=== PATIENT | male | born 1950 | race Caucasian/White ===

== ENCOUNTER → 2019-09-30 | Outpatient (CLI) | payer MEDICARE ==
[~2019-09-30] MED LIST: ALLO300T PO; ASPI-630 PO; DOCU-153 PO; EZET10TA20 PO; FEXO180T81 PO; HYDR-2761 PO; HYDROCODONE-IB1 EACH PO; IBUP-1007 PO; IBUP200T77 PO; IPRA4AER IH; LOSA100T14 PO; LOSA1TAB22 PO; METH750T2 PO; OXYC1TAB15 PO; TAMS0.4C97 PO; TEST200V4 IM; TRIA10.8 NS
[2019-09-30 13:22] LABS: BASO # 0.1 x10^3/uL (0.0-0.2); BASO % 1 % (0-3); EOS # 0.4 x10^3/uL (0.0-0.7); EOS % 5 % (0-3); HEMATOCRIT 52.1 % (39.0-53.0); HEMOGLOBIN 17.7 g/dL (13.0-17.5); LYMPH % 23 % (24-48); MEAN CORPUSCULAR HEMOGLOBIN 33 pg (25-35); MEAN CORPUSCULAR HGB CONC 34 g/dL (31-37); MEAN CORPUSCULAR VOLUME 98 fL (79-100); MONO # 1.2 x10^3/uL (0.0-1.1); MONO % 14 % (0-9); NEUT # 4.8 x10^3/uL (1.8-7.7); NEUT % 57 % (31-73); PLATELET COUNT 235 x10^3/uL (140-400); RED CELL DISTRIBUTION WIDTH 14.5 % (11.5-14.5); WHITE BLOOD COUNT 8.5 x10^3/uL (4.0-11.0)
--- NOTE | 2019-09-30 13:25 | EKG ---
[facility] [address] [place] [address] Test Date: 2019-09-30 Test Time: 13:22:28 Pat Name: LACI JACKSON Department: Room: Gender: M Scaler: : 1950 Requested By: REMIGIO ELLIS Order Number: [id number] Reading MD: Jose Paredes MD Measurements Intervals [place] Rate: 75 P: 25 TN: 168 QRS: 36 QRSD: 92 T: 25 QT: 358 QTc: 402 Interpretive Statements SINUS RHYTHM Electronically Signed On 10-01-2019 12:48:56 CDT by Jose Paredes MD
[2019-09-30 13:35] LABS: PROTHROMBIN TIME PATIENT 13.1 SEC (11.7-14.0)
[2019-09-30 13:38] LABS: ALBUMIN 3.4 g/dL (3.4-5.0); CALCIUM 8.6 mg/dL (8.5-10.1); CREATININE 1.1 mg/dL (0.7-1.3); GFR 66.8; POTASSIUM 4.6 mmol/L (3.5-5.1); TOTAL BILIRUBIN 0.6 mg/dL (0.2-1.0); TOTAL PROTEIN 6.7 g/dL (6.4-8.2)
--- NOTE | 2019-10-01 11:12 | HP ---
ADMIT DATE: PREOPERATIVE HISTORY AND PHYSICAL Pete Mcghee dictating for Dr. Andre Ellis. DATE OF SURGERY: 10/04/2019 HISTORY OF PRESENT ILLNESS: The patient has problems with low back pain. He says that if he walks, his legs feel weak. There is much more significant problem on the right side. The pain is mainly in the right buttock and radiates into the right hip. It can radiate into the right inguinal region. This started after cutting firewood in 03/2019. Standing and walking increases his pain. He says the pain can reach a 10/10. Sitting helps him. He is taking [place] 3 per day. He has been seen in the pain clinic. He has had steroid injections. He had them last in 2017. He also has joint injections in 04/2019. He said those did help him. In 05/2019, he underwent a lumbar epidural steroid injection without benefit. He has had no physical therapy. He is scheduled to be seen for another injection later this month. PAST MEDICAL HISTORY: Arthritis, headaches, hypertension, gout, cancer, COPD, kidney stones, shingles. PAST SURGICAL HISTORY: Cholecystectomy, lumbar microdecompression at L3-L4, L4-L5 in 2005, lumbar fusion L3-L4 and L4-L5 in 2010 and ACDF at C3-C4 in 2012, prostate surgery, bladder tumor removal. FAMILY HISTORY: Heart disease, hypertension, migraine headaches and diabetes. SOCIAL HISTORY: He is retired. . He quit smoking this year. He previously smoked 2 packs per day for 45 years. He drinks alcohol 1-2 times per year. ALLERGIES: KEFLEX. CURRENT MEDICATIONS: [place], losartan, ezetimibe, tamsulosin, Augmentin, Combivent, Milagros, aspirin, ibuprofen, probiotics, losartan, potassium-hydrochlorothiazide, allopurinol, Medrol Dosepak. REVIEW OF SYSTEMS: A 12-point review of systems was obtained and is noncontributory except for that mentioned above. PHYSICAL EXAMINATION: NEUROSURGERY EXAMINATION: GENERAL APPEARANCE: Alert, pleasant, no acute distress. HEAD: Normocephalic and atraumatic. SKIN: Warm and dry. Well-healed lumbar incision. MUSCULOSKELETAL: Lumbar paraspinal muscle bulk is normal. Restricted range of motion of the lumbar spine. Xvop-bw-qgdeukmi tenderness of the lower lumbar spine with palpation, normal range of motion of the lower extremities bilaterally. EXTREMITIES: No clubbing, cyanosis or edema. NEUROLOGIC: Alert and oriented x 3, normal recent and remote memory, strength 5/5 in bilateral lower extremities, sensory was intact to light touch in bilateral lower extremities. Reflexes are present and symmetric in lower extremities bilaterally, negative straight leg raising bilaterally, normal gait. IMAGING: I reviewed a lumbar MRI scan. There are a number of abnormalities. He has a fusion extending from L3 through L5. At L5-S1 on the left, there is disk bulging and a large hypertrophic facet disease, which markedly narrows the left side of the canal and left lateral recess. At L2-L3, there is bilateral facet hypertrophy, which is combined with disk bulging, which is most prominent on the right side. This is associated with generalized stenosis at that level, but with relatively severe right lateral recess and neural foraminal narrowing. There is a moderate left-sided lateral recess and foraminal narrowing. ASSESSMENT: 1. Spinal stenosis, lumbar region with neurogenic claudication. 2. Radiculopathy, lumbar region. 3. Arthrodesis status. 4. Low back pain. PLAN: I believe his symptoms and the pattern of his pain are related to problems at L2-L3. If he comes to surgery, I would recommend at least a partial removal of hardware on the right side to gain access and perform a generous right direct laminectomy and microdiskectomy. He understands. He would like to proceed. We will make the arrangements. ANDRE ELLIS MD DR: IVAN/shelby JOB#: [id number] / [id number]
== END ==
LOC: SURGPAT 12:17
PROVIDERS: ATTEND Neurological Surgery
DX: Z01.818 Encounter for other preprocedural examination (principal); Z11.59 Encounter for screening for other viral diseases; M48.062 Spinal stenosis, lumbar region with neurogenic claudication; M54.16 Radiculopathy, lumbar region
CPT/HCPCS: 36415; 80053; 85025; 85610; 85730; 87641; 93005; U0003

== ENCOUNTER 2019-10-04 06:21 | Inpatient (IN) | payer MEDICARE ==
--- NOTE | 2019-10-01 17:11 | PREOP HP ---
DATE OF SERVICE: 10/04/2019 PREOPERATIVE HISTORY AND PHYSICAL DATE OF SURGERY: 10/04/2019. HISTORY OF PRESENT ILLNESS: The patient has problems with low back pain. He says that if he walks, his legs feel weak. There is more significant problem on the right side than the left. The pain is mainly in the right buttock and radiates into the right hip. It can radiate into the right inguinal region. This started after cutting firewood in 03/2019. Standing and walking increases his pain. He says the pain can reach a 10/10. Sitting helps him. He is taking [place] 3 per day. He has been seen in the pain clinic. He has had steroid injections. He had them last in 2017. He also has joint injections in 04/2019. He said those did help him. In 05/2019, he underwent a lumbar epidural steroid injection without benefit. He has had no physical therapy. He is scheduled to be seen for another injection later this month. PAST MEDICAL HISTORY: Arthritis, headaches, hypertension, gout, cancer, COPD, kidney stones, shingles. PAST SURGICAL HISTORY: Cholecystectomy, lumbar microdecompression at L3-L4, L4-L5 in 2005, lumbar fusion L3-L4 and L4-L5 in 2010 and ACDF at C3-C4 in 2012, prostate surgery, bladder tumor removal. FAMILY HISTORY: Heart disease, hypertension, migraine headaches and diabetes. SOCIAL HISTORY: He is retired. . He quit smoking this year. He previously smoked 2 packs per day for 45 years. He drinks alcohol 1-2 times per year. ALLERGIES: KEFLEX. CURRENT MEDICATIONS: [place], losartan, ezetimibe, tamsulosin, Augmentin, Combivent, Milagros, aspirin, ibuprofen, probiotics, losartan, potassium-hydrochlorothiazide, allopurinol, Medrol Dosepak. REVIEW OF SYSTEMS: A 12-point review of systems was obtained and is noncontributory except for that mentioned above. PHYSICAL EXAMINATION: NEUROSURGERY EXAMINATION: GENERAL APPEARANCE: Alert, pleasant, no acute distress. HEAD: Normocephalic and atraumatic. SKIN: Warm and dry. Well-healed lumbar incision. MUSCULOSKELETAL: Lumbar paraspinal muscle bulk is normal. Restricted range of motion of the lumbar spine. Kmlm-fy-metyakgg tenderness of the lower lumbar spine with palpation, normal range of motion of the lower extremities bilaterally. EXTREMITIES: No clubbing, cyanosis or edema. NEUROLOGIC: Alert and oriented x 3, normal recent and remote memory, strength 5/5 in bilateral lower extremities, sensory was intact to light touch in bilateral lower extremities. Reflexes are present and symmetric in lower extremities bilaterally, negative straight leg raising bilaterally, slow gait. IMAGING: I reviewed a lumbar MRI scan. There are a number of abnormalities. He has a fusion extending from L3 through L5. At L5-S1 on the left, there is disc bulging and a large hypertrophic facet disease, which markedly narrows the left side of the canal and left lateral recess. At L2-L3, there is bilateral facet hypertrophy, which is combined with disc bulging, which is most prominent on the right side. This is associated with generalized stenosis at that level, but with relatively severe right lateral recess and neural foraminal narrowing. There is a moderate left-sided lateral recess and foraminal narrowing. ASSESSMENT/ PLAN: I believe his symptoms and the pattern of his pain are related to problems at L2-L3. If he comes to surgery, I would recommend at least a partial removal of hardware on the right side to gain access and perform a generous right direct laminectomy and microdiscectomy. He understands. He would like to proceed. We will make the arrangements. REIMGIO ELLIS MD DR: IVAN/shelby JOB#: [id number] / [id number] FRANTZ
[2019-10-04] VITALS (9 sets, daily range): BP systolic 138–167; BP diastolic 81–98
[~2019-10-04] VITALS: Ht 177.8 cm; Wt 91.6 kg
[~2019-10-04 06:21] MED LIST changes: +BACITRACIN 50,000 UNIT in IV NORMAL SALINE 1000ML BAG 1,000 ML IRR ONE; -DOCU-153 PO; -METH750T2 PO; -OXYC1TAB15 PO; +VANCOMYCIN 1GM IVPB FOR OMNI 250 ML IV PRN
[2019-10-04] MEDS ORDERED: ONDANSETRON PF 4 MG/2 ML VIAL. ONE (06:34)
[2019-10-04] MEDS ORDERED: PHENYLEPHRINE in 0.9% NACL PF 1 MG/10 ML SYRINGE. IV ONE (06:34)
[2019-10-04] MEDS ORDERED: PROPOFOL 50 ML IV ONE ×3 (06:34→13:12)
[2019-10-04] MEDS ORDERED: LIDOCAINE 2% PF 5 ML VIAL. ONE (06:34)
[2019-10-04] MEDS ORDERED: DEXAMETHASONE SOD PHOS 20 MG/5 ML VIAL. ONE (06:34)
[2019-10-04] MEDS ORDERED: PROPOFOL 10 MG/ML (20ML) VIAL. IV ONE (06:34)
[2019-10-04] MEDS ORDERED: ROCURONIUM 50 MG/5 ML VIAL. ONE (06:35)
[2019-10-04] MEDS ORDERED: REMIFENTANIL 2 MG VIAL. IV ONE ×2 (06:36→11:45)
[2019-10-04] MEDS ORDERED: BUPIVACAINE-EPI 0.5%-1:200000 MPF 30 ML VIAL. ONE (06:58)
[2019-10-04] MEDS ORDERED: KETOROLAC 60 MG/2 ML VIAL. ONE (06:58)
[2019-10-04] MEDS ORDERED: GELATIN SPONGE SIZE 100. ONE (06:58)
[2019-10-04] MEDS ORDERED: THROMBIN TOPICAL 20,000 UNIT SPRAY.SYRN KIT TP ONE (06:58)
[2019-10-04] MEDS ORDERED: IV RINGERS,LACTATED 1000ML 1,000 ML IV SCH (07:00)
[2019-10-04] MEDS ORDERED: MORPHINE SULFATE 2 MG/ML VIAL. IV PRN (07:00)
[2019-10-04] MEDS ORDERED: ONDANSETRON PF 4 MG/2 ML VIAL. IV PRN (07:00)
[2019-10-04] MEDS ORDERED: LIDOCAINE 1% PF 2 ML VIAL. ID PRN (07:00)
[2019-10-04] MEDS ORDERED: HYDROmorphone 2 MG/ML VIAL IV PRN (07:00)
[2019-10-04] MEDS ORDERED: PROCHLORPERAZINE 10 MG/2 ML VIAL. IV PRN (07:00)
[2019-10-04] MEDS ORDERED: fentaNYL PF VIAL 100 MCG/2 ML VIAL IV PRN ×2 (07:00)
[2019-10-04] MEDS ORDERED: IPRATRPIUM/ALBUTEROL 0.5/2.5MG 3 ML NEBU. NEB ONE (08:00)
[2019-10-04] MEDS ORDERED: MIDAZOLAM HCL/PF 2 MG/2 ML VIAL. ONE (08:22)
[2019-10-04] MEDS ORDERED: fentaNYL PF VIAL 100 MCG/2 ML VIAL ONE (08:22)
[2019-10-04] MEDS ORDERED: SUCCINYLCHOLINE 200 MG/10 ML VIAL. ONE (08:56)
--- NOTE | 2019-10-04 09:28 | RAD ---
CT lumbar spine without contrast HISTORY: Lumbar radiculopathy. FINDINGS: S-shaped lumbar scoliosis. Lumbar vertebral body height and alignment intact. There is transitional lumbosacral anatomy, the transitional vertebral segment is classified as a sacralized L5 vertebra, with hypoplastic T12 thoracic vertebral ribs demonstrated on axial image 57. Based on this numbering of the vertebra there are postoperative changes of posterior fusion with pedicle screws and rods at L2-L4, laminotomies with posterior lateral osseous fusion L2-L4, and discectomy with interbody fusion with spacers at L2-L3 and L3-L4. No bone lysis surrounding the hardware to suggest loosening. No fracture. No spondylolysis defect. Aortoiliac artery calcified plaque. Paraspinal tissues are unremarkable. Lumbar spondylosis is described below. T10-T11: Disc height loss, large disc bulge and facet spurring with severe spinal canal and right lateral recess stenosis and moderate neural foraminal stenoses. T11-T12: Disc bulge, disc height loss, facet spurring, mild left neural foraminal stenosis, there may be mild spinal canal stenosis. T12-L1: Disc height loss, disc bulge, endplate spurring, facet spurring, moderate to severe spinal canal, lateral recess and neural foraminal stenoses. L1-L2: Vacuum disc, posterior disc height loss, disc bulge, right lateral endplate spurring, facet spurring and hypertrophy, with severe spinal canal stenosis and right neural foraminal stenosis. There is moderate left neural foraminal stenosis. L2-L3: Streak artifact limits soft tissue detail. Discectomy and fusion. Bony spinal canal is grossly decompressed. Lateral vertebral endplate spurring and facet spurring contributes to at least moderate neural foraminal stenoses. L3-L4: Streak artifact limits soft tissue detail. Discectomy and fusion. Bony spinal canal is grossly decompressed. Lateral vertebral endplate spurring and facet hypertrophy and spurring with moderate left and mild right neural foraminal stenoses. L4-L5: Disc height loss, vacuum disc, disc bulge, left greater than right lateral vertebral endplate spurring, facet hypertrophy and spurring, with moderate spinal canal stenosis, moderate neural foraminal stenosis and severe left neural foraminal stenosis. L5-S1: Spinal canal and neural foramina are patent. IMPRESSION: Transitional lumbosacral anatomy with partial sacralization of the L5 lumbar vertebral body. Postsurgical changes. Lumbar scoliosis, disc disease and arthritis with spinal canal and neural foraminal stenoses at several levels. See discussion above. Exposure: One or more of the following individualized dose reduction techniques were utilized for this examination: 1. Automated exposure control 2. Adjustment of the mA and/or kV according to patient size 3. Use of iterative reconstruction technique Electronically signed by: Kristopher Jordan MD (10/04/2019 9:25 AM) [id number]
[2019-10-04] MEDS ORDERED: DESFLURANE > 120 MINUTES IH ONE (14:34)
--- NOTE | 2019-10-04 15:25 | NUR ---
Arrived to unit by bed from PACU. Awake and oriented x's 4. No c/o at this time. Dressings on lower back are d/i x's 2. Place new ice pack at incision site. Moves all extremities easily without difficulty. IVF's intact and fusing. JOHN's and CAREY's on bilaterally. Side rails up x's 2 with call light in reach. Daughter at bedside. Cont. Monitor.
[2019-10-04] MEDS ORDERED: fentaNYL PF VIAL 100 MCG/2 ML VIAL IVP PRN (15:30)
[2019-10-04] MEDS ORDERED: ACETAMINOPHEN 325 MG TABLET. PO PRN (15:30)
[2019-10-04] MEDS ORDERED: CALCIUM CARBONATE 500 MG TAB.CHEW PO PRN (15:30)
[2019-10-04] MEDS ORDERED: MAGNESIUM HYDROXIDE 2,400 MG/30 ML ORAL.SUSP. PO PRN (15:30)
[2019-10-04] MEDS ORDERED: NALOXONE 0.4 MG/ML VIAL. IV PRN (15:30)
[2019-10-04] MEDS ORDERED: MAG HYDROX/ALUMINUM HYD/SIMETH 30 ML ORAL.SUSP PO PRN (15:30)
[2019-10-04] MEDS ORDERED: 0.9 % SODIUM CHLORIDE 10 ML DISP.SYRIN. IV PRN (15:30)
[2019-10-04] MEDS ORDERED: diphenhydrAMINE HCL 25 MG CAPSULE PO PRN (15:30)
[2019-10-04] MEDS ORDERED: oxyCODONE/APAP 5/325 1 TAB TABLET PO PRN (15:30)
--- NOTE | 2019-10-04 15:38 | RAD ---
FLUOROSCOPY < 1 HR History: Reason: LUMBAR LAMINECTOMY IN OR WITH HARDWARE REMOVAL WITH C-ARM. / Spl. Instructions: / History: Comparison: CT October 04, 2019 Technique/findings: Fluoroscopy provided intraoperatively during reported hardware removal and lumbar laminectomy. See procedure note for further details. Number of fluoroscopic images: 2 Impression: 1. Fluoroscopy provided intraoperatively during spinal surgery. Electronically signed by: Nathanael Gutierrez DO (10/04/2019 3:35 PM) [id number]
[2019-10-04] MEDS: NICOTINE 14MG PATCH. TD SCH (16:07)
[2019-10-04] MEDS: METHOCARBAMOL 750 MG TABLET PO PRN (16:11)
[2019-10-04] MEDS ORDERED: NON FORMULARY ITEM (Ipratropium/Albuterol Sulfate (Combivent Respimat Inhal) 2 INH) IH SCH (17:00)
--- NOTE | 2019-10-04 17:15 | NUR ---
Ambulated the hallway with walker and tolerated it well. Return to room and sitting on edge of bed visiting with daughter. Cont. monitor.
--- NOTE | 2019-10-04 19:53 | OP ---
DATE OF SURGERY: 10/04/2019 PREOPERATIVE DIAGNOSES: 1. Instrumented fusion L3 through L5. 2. Adjacent segment degenerative change with stenosis at L2-L3 along with lumbar radiculopathy. POSTOPERATIVE DIAGNOSES: 1. Instrumented fusion L3 through L5. 2. Adjacent segment degenerative change with stenosis at L2-L3 along with lumbar radiculopathy. OPERATION PERFORMED: Removal of hardware L3, bilateral hemilaminotomy with decompression of dura and nerve root L2-L3, placement of hardware L2, replacement of hardware L3, posterolateral fusion L2-L3 with allograft and autograft bone. SURGEON: Andre Ellis M.D. ACTIVITIES VOLUNTEER: MICHAEL Rodrigues assisted with the decompression as well as the fusion. OPERATIVE INDICATIONS: The patient is a pleasant 69-year-old man who developed intractable back and severe right leg pain. He was found to have stenosis at L2-L3 along with severe degenerative changes. I recommended bilateral hemilaminotomies with decompression of dura and nerve root, combined with an instrumented fusion extending his previous fusion up to L2-L3. I spoke with him about the surgery, the risks, technique and expected postoperative course and he understood and wished to go ahead. The morning of surgery, however, he describes significant left-sided pain so surgery to decompress the left side as well was recommended. DESCRIPTION OF PROCEDURE: Following general endotracheal anesthesia, the patient was positioned prone on the Rodrigo table. Lumbar region prepped and draped in standard fashion. JOHN hose and AV impulse boots were applied for DVT prophylaxis. A microscope was draped. Fluoroscopy was draped and brought in the field. Monitoring was established. Vanco1 gram was given less than 1 hour prior to initiation of the surgery. Using fluoroscopic guidance, a previous midline incision at about the L3-L4 region was extended superiorly to encompass L2-L3. I attached the BrainLAB Star to the spinous process of L3 and then VividWorks system was initialized. I reflected the paraspinal muscles at L2-L3, exposed the hardware of L3 bilaterally, cut the rods between L3 and L4 screws and then removed the screws at L3 bilaterally. I then went up to L2 and using BrainLAB guidance and anatomic landmarks first drilled and then passed a black ball followed by tap the pedicles of L2. I did use stimulated EMG monitoring which was used prior to passing anything into the pedicle to ensure that the roots were completely safe. There were no difficulties with this. At this point, then I brought in the microscope, burred down a generous hemilaminotomy, first on the right and then on the left. There was severe compression on the right exiting root and I fully relieved this just below there was bulging disc.It was very firm and partly calcified and no discectomy was warranted. Following this, then I excoriated posterolaterally. I aspirated 20 mL of bone marrow from the right iliac crest, which I obtained through a separate small stab incision. This was connected with the allograft bone. I did save autograft bone for my decompression of work and the mixture of allograft and autograft was then packed into each lateral gutter. Screws were placed, rods were placed. The system was torqued sequentially. X-rays looked excellent. I then closed the wound with absorbable suture in multiple layers. The skin was closed with 4-0 subcuticular stitch. ANDRE ELLIS MD DR: IVAN/shelby JOB#: [id number] / [id number]
[2019-10-04] MEDS: IPRATRPIUM/ALBUTEROL 0.5/2.5MG 3 ML NEBU. NEB SCH (20:22)
[2019-10-04] MEDS: FEXOFENADINE PO PRN (20:46)
[2019-10-04] MEDS: PSEUDOEPHEDRINE PO PRN (20:46)
[2019-10-04] MEDS: oxyCODONE/APAP 5/325 1 TAB TABLET PO PRN (20:47)
[2019-10-04] MEDS: POTASSIUM CL 20MEQ D5-0.45NACL 1,000 ML IV SCH (20:50)
[2019-10-04] MEDS: DOCUSATE SODIUM 100 MG CAPSULE. PO SCH (20:54)
[2019-10-04] MEDS ORDERED: VANCOMYCIN 1 GM in IV NORMAL SALINE 250ML 250 ML IV ONE (21:00)
--- NOTE | 2019-10-04 23:00 | NUR ---
Denies urge to void. Bladder scan shows 942cc. Straight cath returned 500cc. + hypospadias. c/o "burning" to lateral right scrotum. Nothing unusual seen.
[2019-10-05] MEDS: oxyCODONE/APAP 5/325 1 TAB TABLET PO PRN ×2 (02:57→08:06)
[2019-10-05 03:12] VITALS: BP 139/78
[2019-10-05] MEDS: POTASSIUM CL 20MEQ D5-0.45NACL 1,000 ML IV SCH ×2 (04:37→17:23)
[2019-10-05 06:27] VITALS: BP 117/67
--- NOTE | 2019-10-05 06:28 | NUR ---
"I might go home today." Denies urge to void. Refused offered pain meds.
[2019-10-05] MEDS: IPRATRPIUM/ALBUTEROL 0.5/2.5MG 3 ML NEBU. NEB SCH ×4 (07:17→19:50)
[2019-10-05] MEDS: TAMSULOSIN 0.4 MG CAP.ER.24H. PO SCH (08:06)
[2019-10-05] MEDS: EZETIMIBE 10 MG TABLET. PO SCH (08:06)
[2019-10-05] MEDS: METHOCARBAMOL 750 MG TABLET PO PRN (08:06)
[2019-10-05] MEDS: ASPIRIN CHEWABLE 81 MG TABLET. PO SCH (08:07)
[2019-10-05] MEDS: NICOTINE 14MG PATCH. TD SCH (08:07)
[2019-10-05] MEDS: DOCUSATE SODIUM 100 MG CAPSULE. PO SCH ×2 (08:07→21:24)
[2019-10-05] MEDS: LOSARTAN POTASSIUM 50 MG TABLET. PO SCH (08:10)
[2019-10-05] MEDS: FLUTICASONE 50MCG/NASAL SPRAY 16GM BOTTLE. NS SCH (08:12)
[2019-10-05] MEDS ORDERED: CETIRIZINE HCL 10 MG TABLET. PO SCH (09:00)
[2019-10-05] MEDS ORDERED: DOCU-153 PO (12:24)
[2019-10-05] MEDS ORDERED: OXYC1TAB15 PO (12:24)
[2019-10-05] MEDS ORDERED: METH750T2 PO (12:24)
--- NOTE | 2019-10-05 12:26 | DISCH ---
DISCHARGE INSTRUCTIONS Condition on Discharge Condition on Discharge: Stable Activity After Discharge Activity Instructions for Disc: Activity as tolerated, Avoid exertion Other activity instructions: No driving for a week Bathing Instructions: Shower-keep dressing dry Lifting Instructions after Dis: No heavy lifting, No pulling or pushing, Do not lift >10 pounds Diet after Discharge Additional Diet Restrictions: resume home diet Wound Incision Care Wound/Incision Care: Ice to area for comfort Other wound/incision instructi: may remove dressing in 48 hours if dry then may shower, no soaking Contacting the DRRebekah after DC Call your doctor for: Concerns you may have Follow-Up Follow up with: Dr. Bush's nurse in 2 weeks [phone] Treatment/Equipment after DC Adaptive Equipment Issued: REMIGIO Lord MD Oct 05, 2019 12:26
--- NOTE | 2019-10-05 12:49 | NUR ---
Voided without measuring it. States "I void small amounts at a time but frequently". Nothing new for him. Bladder scan and had 781ml. Pt spoke with Gladys LAWSON and nurse earlier about having to self cath after having prostate surgery. States still has supplies if needed to self cath. Will bladder scan again after voiding. Cont. to encourage to increase po intake and monitor output.
[2019-10-05 15:00] VITALS: BP 122/61
--- NOTE | 2019-10-05 15:20 | NUR ---
Voided 100ml dark falguni urine. Bladder scan 890ml. Straight cath and got 700ml of dark falguni urine. Notified Gladys LAWSON and gave orders cancel discharge, strict I&O and bladder scan every 6 hours.
[2019-10-05] MEDS: POTASSIUM CL 20MEQ-0.45% NACL 1,000 ML IV SCH (17:27)
[2019-10-05 18:40] VITALS: BP 113/69
[2019-10-05] MEDS: FEXOFENADINE PO PRN (21:25)
[2019-10-05] MEDS: PSEUDOEPHEDRINE PO PRN (21:25)
--- NOTE | 2019-10-05 22:00 | NUR ---
Didn't call for assist to toilet. stated he "peed a little bit in the toilet". No measurement. Bladder scan shows 883cc, straight cath returned 500cc. "I have a urologist in [place], [place]." Denied urge to void and pain w/ distended bladder.
--- NOTE | 2019-10-05 23:00 | NUR ---
Requested to sit in recliner and "put some oxygen on." RA sat 92%. States he wears 3l prn at home. Sat on 3l= 96%. Surgical dressing changed due to drainage.
--- NOTE | 2019-10-06 01:22 | NUR ---
Requested Tolbert, "I can't pee and it's uncomfortable." Bladder scan shows 612cc, 16 FR Tolbert placed w/ mild difficulty this time. 750cc immediate return. Denies back pain. Has been restless, Denies back pain or need for meds. Surgical dressing has shadow drainage present. Assisted into recliner, call light in reach. "I don't know what I need."
[2019-10-06 06:03] VITALS: BP 138/83
--- NOTE | 2019-10-06 06:09 | NUR ---
Assisted from chair to bed. Surgical cleansed w/ Chlorhexadrine swab and dressed w/ telfa, gauze and bordered gauze. Continues to deny need for meds. IV changed to saline lock. Encouraged po intake. 1 liter emptied from Tolbert.
[2019-10-06] MEDS: POTASSIUM CL 20MEQ-0.45% NACL 1,000 ML IV SCH (06:20)
[2019-10-06] MEDS: IPRATRPIUM/ALBUTEROL 0.5/2.5MG 3 ML NEBU. NEB SCH ×2 (07:50→11:27)
[2019-10-06] MEDS: ASPIRIN CHEWABLE 81 MG TABLET. PO SCH (08:30)
[2019-10-06] MEDS: EZETIMIBE 10 MG TABLET. PO SCH (08:30)
[2019-10-06] MEDS: LOSARTAN POTASSIUM 50 MG TABLET. PO SCH (08:31)
[2019-10-06] MEDS: DOCUSATE SODIUM 100 MG CAPSULE. PO SCH (08:31)
[2019-10-06] MEDS: TAMSULOSIN 0.4 MG CAP.ER.24H. PO SCH (08:31)
[2019-10-06] MEDS: NICOTINE 14MG PATCH. TD SCH (08:34)
[2019-10-06] MEDS: FLUTICASONE 50MCG/NASAL SPRAY 16GM BOTTLE. NS SCH (08:35)
--- NOTE | 2019-10-06 10:43 | PDOC ---
PROGRESS NOTES Subjective Subjective LATE ENTRY- Patient seen at 1215 10/05/19 POD #1 S/P Removal of hardware L3, bilateral hemilaminotomy with decompression of dura and nerve root L2-L3, placement of hardware L2, replacement of hardware L3, posterolateral fusion L2-L3 sitting up on side of bed back pain well controlled ambulated in [place] with walker Difficulty voiding and required straight cath strength 5/5 in BLE Dressing D, I, Flat possible dc later today if able to void PT D/W RN Objective Objective Vital Signs Date Time Temp Pulse Resp B/P (MAP) Pulse Ox O2 Delivery O2 Flow Rate FiO2 10/06/19 08:31 90 138/83 10/06/19 08:15 Room Air 10/06/19 07:52 94 10/06/19 06:03 97.9 22 97.9 10/04/19 14:41 8 Intake and Output 10/06/19 07:00 Intake Total 2561 ml Output Total 2200 ml Balance 361 ml Intake Oral 1520 ml Blood Product IV Normal Saline Flush 1041 ml Output Urine Total 2200 ml Stool Total 0 ml # Voids 3 Comment Review of Relevant I have reviewed the following items amira (where applicable) has been applied. Medications Current Medications Ondansetron HCl (Zofran) 4 mg PRN Q6HRS PRN IV NAUSEA/VOMITING; Start 10/04/19 at 07:00; Stop 10/04/19 at 15:51; Status DC Fentanyl Citrate (Fentanyl 2ml Vial) 25 mcg PRN Q5MIN PRN IV MILD PAIN 1-3; St art 10/04/19 at 07:00; Stop 10/04/19 at 15:51; Status DC Fentanyl Citrate (Fentanyl 2ml Vial) 50 mcg PRN Q5MIN PRN IV MODERATE TO SEVERE PAIN; Start 10/04/19 at 07:00; Stop 10/04/19 at 15:51; Status DC Morphine Sulfate (Morphine Sulfate) 1 mg PRN Q10MIN PRN IV SEVERE PAIN 7-10; Start 10/04/19 at 07:00; Stop 10/04/19 at 15:51; Status DC Ringer's Solution 1,000 ml @ 30 mls/hr Q24H IV Last administered on 10/04/19at 07:08; Start 10/04/19 at 07:00; Stop 10/04/19 at 15:51; Status DC Lidocaine HCl (Xylocaine-Mpf 1% 2ml Vial) 2 ml PRN 1X PRN ID PRIOR TO IV START; Start 10/04/19 at 07:00; Stop 10/04/19 at 15:51; Status DC Hydromorphone HCl (Dilaudid) 0.5 mg PRN Q10MIN PRN IV SEV PAIN, Second choice; Start 10/04/19 at 07:00; Stop 10/04/19 at 15:51; Status DC Prochlorperazine Edisylate (Compazine) 5 mg PACU PRN PRN IV NAUSEA, MRX1; Start 10/04/19 at 07:00; Stop 10/04/19 at 15:51; Status DC Vancomycin HCl 250 ml @ 250 mls/hr 1X PREOP PRN IV PRIOR TO PROCEDURE Last administered on 10/04/19at 09:01; Start 10/04/19 at 06:00; Stop 10/04/19 at 18:00; Status DC Bacitracin 10174 unit/Sodium Chloride 1,000 ml @ 1,000 mls/hr 1X ONCE IRR Last administered on 10/04/19at 09:43; Start 10/04/19 at 06:00; Stop 10/04/19 at 06:59; Status DC Propofol (Diprivan) 200 mg STK-MED ONCE IV ; Start 10/04/19 at 06:34; Stop 10/04/19 at 06:34; Status DC Lidocaine HCl (Lidocaine Pf 2% Vial) 5 ml STK-MED ONCE .ROUTE ; Start 10/04/19 at 06:34; Stop 10/04/19 at 06:34; Status DC Dexamethasone Sodium Phosphate (Decadron) 20 mg STK-MED ONCE .ROUTE ; Start 10/04/19 at 06:34; Stop 10/04/19 at 06:34; Status DC Ondansetron HCl (Zofran) 4 mg STK-MED ONCE .ROUTE ; Start 10/04/19 at 06:34; Stop 10/04/19 at 06:34; Status DC Phenylephrine HCl (PHENYLEPHRINE in 0.9% NACL PF) 1 mg STK-MED ONCE IV ; Start 10/04/19 at 06:34; Stop 10/04/19 at 06:34; Status DC Propofol 50 ml @ As Directed STK-MED ONCE IV ; Start 10/04/19 at 06:34; Stop 10/04/19 at 06:35; Status DC Rocuronium [place] (Zemuron) 50 mg STK-MED ONCE .ROUTE ; Start 10/04/19 at 06:35; Stop 10/04/19 at 06:36; Status DC Remifentanil HCl (Ultiva) 2 mg STK-MED ONCE IV ; Start 10/04/19 at 06:36; Stop 10/04/19 at 06:36; Status DC Gelatin (Gelfoam Size 100) 1 each STK-MED ONCE .ROUTE Last administered on 10/04/19at 09:43; Start 10/04/19 at 06:58; Stop 10/04/19 at 06:58; Status DC Bupivacaine HCl/ Epinephrine Bitart (Sensorcain-Epi 0.5%-1:280863 Mpf) 30 ml STK-MED ONCE .ROUTE Last administered on 10/04/19at 09:43; Start 10/04/19 at 06:58; Stop 10/04/19 at 06:58; Status DC Ketorolac Tromethamine (Toradol Im) 60 mg STK-MED ONCE .ROUTE Last administered on 10/04/19at 09:43; Start 10/04/19 at 06:58; Stop 10/04/19 at 06:58; Status DC Thrombin 20,000 unit STK-MED ONCE TP Last administered on 10/04/19at 09:43; Start 10/04/19 at 06:58; Stop 10/04/19 at 06:59; Status DC Albuterol/ Ipratropium (Duoneb) 3 ml 1X ONCE NEB Last administered on 10/04/19at 08:07; Start 10/04/19 at 08:00; Stop 10/04/19 at 08:01; Status DC Fentanyl Citrate (Fentanyl 2ml Vial) 100 mcg STK-MED ONCE .ROUTE ; Start 10/04/19 at 08:22; Stop 10/04/19 at 08:22; Status DC Midazolam HCl (Versed) 2 mg STK-MED ONCE .ROUTE ; Start 10/04/19 at 08:22; Stop 10/04/19 at 08:22; Status DC Succinylcholine Chloride (Anectine) 200 mg STK-MED ONCE .ROUTE ; Start 10/04/19 at 08:56; Stop 10/04/19 at 08:56; Status DC Propofol 50 ml @ As Directed STK-MED ONCE IV ; Start 10/04/19 at 10:22; Stop 10/04/19 at 10:22; Status DC Remifentanil HCl (Ultiva) 2 mg STK-MED ONCE IV ; Start 10/04/19 at 11:45; Stop 10/04/19 at 11:46; Status DC Propofol 50 ml @ As Directed STK-MED ONCE IV ; Start 10/04/19 at 13:12; Stop 10/04/19 at 13:12; Status DC Desflurane (Suprane) 90 ml STK-MED ONCE IH ; Start 10/04/19 at 14:34; Stop 10/04/19 at 14:34; Status DC Aspirin (Aspirin Chewable) 81 mg DAILY PO Last administered on 10/06/19at 08:30; Start 10/05/19 at 09:00 EZETIMIBE (Zetia) 10 mg DAILY PO Last administered on 10/06/19at 08:30; Start 10/05/19 at 09:00 Tamsulosin HCl (Flomax) 0.4 mg DAILY PO Last administered on 10/06/19at 08:31; Start 10/05/19 at 09:00 Cetirizine HCl (ZyrTEC) 10 mg DAILY PO ; Start 10/05/19 at 09:00; Status Cancel Non-Formulary Medication (Ipratropium/ Albuterol Sulfate (Combivent Respimat Inhal)) 2 inh QID IH ; Start 10/04/19 at 17:00; Status UNV Losartan Potassium (Cozaar) 100 mg DAILY PO Last administered on 10/06/19at 08:31; Start 10/05/19 at 09:00 Fluticasone Propionate (Flonase) 2 spray DAILY NS ; Start 10/05/19 at 09:00 Fentanyl Citrate (Fentanyl 2ml Vial) 50 mcg PRN Q2HR PRN IVP PAIN; Start 10/04/19 at 15:30 Vancomycin HCl 1 gm/Sodium Chloride 250 ml @ 250 mls/hr 1X ONCE IV Last administered on 10/04/19at 20:50; Start 10/04/19 at 21:00; Stop 10/04/19 at 21:59; Status DC Acetaminophen (Tylenol) 650 mg PRN Q6HRS PRN PO MILD PAIN / TEMP > 100.3'F; Start 10/04/19 at 15:30 Al Hydroxide/Mg Hydroxide (Mylanta Plus Xs) 30 ml PRN Q3HRS PRN PO HEARTBURN / GAS; Start 10/04/19 at 15:30 Calcium Carbonate/ Glycine (Tums) 500 mg PRN Q3HRS PRN PO INDIGESTION; Start 10/04/19 at 15:30 Diphenhydramine HCl (Benadryl) 25 mg PRN Q6HRS PRN PO ITCHING; Start 10/04/19 at 15:30 Naloxone HCl (Narcan) 0.1 mg PRN Q2MIN PRN IV ADMIN; Start 10/04/19 at 15:30 Sodium Chloride (Normal Saline Flush) 3 ml QSHIFT PRN IV AFTER MEDS AND BLOOD DRAWS; Start 10/04/19 at 15:30 Potassium Chloride/Dextrose/ Sod Cl 1,000 ml @ 75 mls/hr [id number] IV Last administered on 10/04/19at 20:50; Start 10/04/19 at 15:17; Stop 10/05/19 at 17:23; Status DC Oxycodone/ Acetaminophen (Percocet 5/325) 1 tab PRN Q4HRS PRN PO MILD PAIN, 1ST CHOICE Last administered on 10/04/19at 16:13; Start 10/04/19 at 15:30 Oxycodone/ Acetaminophen (Percocet 5/325) 2 tab PRN Q4HRS PRN PO MODERATE PAIN, SEVERE PAIN Last administered on 10/05/19at 08:06; Start 10/04/19 at 15:30 Methocarbamol (Robaxin) 750 mg PRN TID PRN PO MUSCLE SPASMS Last administered on 10/05/19at 08:06; Start 10/04/19 at 15:30 Docusate Sodium (Colace) 100 mg BID PO Last administered on 10/06/19at 08:31; Start 10/04/19 at 21:00 Magnesium Hydroxide (Milk Of Magnesia) 2,400 mg PRN Q12HR PRN PO CONSTIPATION; Start 10/04/19 at 15:30 Nicotine (Nicoderm Cq 14mg) 1 patch DAILY TD Last administered on 10/06/19at 08:34; Start 10/04/19 at 16:00 Albuterol/ Ipratropium (Duoneb) 3 ml RTQID NEB Last administered on 10/06/19at 07:50; Start 10/04/19 at 16:00 Non-Formulary Medication 1 ea PRN DAILY PRN PO ALLERGIES Last administered on 10/05/19at 21:25; Start 10/04/19 at 18:45 Potassium Chloride/Sodium Chloride 1,000 ml @ 75 mls/hr [id number] IV Last administered on 10/05/19at 17:27; Start 10/05/19 at 17:00 Active Scripts Active Reported Combivent Respimat Inhal (Ipratropium/Albuterol Sulfate) 4 Gm Aer.w.adap 2 Inh IH QID Nasacort (Triamcinolone Acetonide) 10.8 Ml Yoder 2 Yoder NS DAILY Milagros Allergy (Fexofenadine Hcl) 180 Mg Tablet 180 Mg PO DAILY Aspirin 81 Mg Tab.chew 81 Mg PO DAILY Flomax (Tamsulosin Hcl) 0.4 Mg Cap.er.24h 0.4 Mg PO DAILY Zetia (Ezetimibe) 10 Mg Tablet 10 Mg PO DAILY Testosterone Enanthate 200 Mg/1 Ml Vial 200 Mg IM Q2WKS Losartan Potassium 100 Mg Tablet 100 Mg PO DAILY Hydrocodone-Ibuprofen 10-200 (Hydrocodone/Ibuprofen) 1 Each Tablet 1 Each PO Q4HRS PRN Ibuprofen 200 Mg Tablet 200 Mg PO QIDPRN Vitals/I & O Vital Sign - Last 24 Hours 10/05/19 10/05/19 10/05/19 10/05/19 11:26 15:00 15:13 18:40 Temp 98.6 99.5 98.6 99.5 Pulse 96 93 Resp 20 20 B/P (MAP) 122/61 (81) 113/69 (84) Pulse Ox 94 94 O2 Delivery Room Air Room Air Room Air Room Air 10/05/19 10/05/19 10/06/19 10/06/19 19:50 20:00 06:03 07:52 Temp 97.9 97.9 Pulse 90 Resp 22 B/P (MAP) 138/83 (101) Pulse Ox 93 94 O2 Delivery Room Air Room Air Room Air Room Air 10/06/19 10/06/19 08:15 08:31 Pulse 90 B/P (MAP) 138/83 O2 Delivery Room Air Intake and Output 10/05/19 10/05/19 10/06/19 15:00 23:00 07:00 Intake Total 360 ml 420 ml 1781 ml Output Total 700 ml 1500 ml Balance 360 ml -280 ml 281 ml JOY BEJARANO APRN Oct 06, 2019 10:43
[2019-10-06 11:22] VITALS: BP 140/80
--- NOTE | 2019-10-06 11:49 | NUR ---
Patient left the building with his daughter around 1145. Discharge education gone over by this nurse, therapy, and the [employer] prior to discharge. Dressing to lower back changed due to bloody drainage noted prior to discharge. Dressing change shown to daughter and extra dressings given to the patient for at home care. No signs of infection or dehiscence noted. Tolbert catheter in place at discharge. RENNY Graham stated she will follow up with the patient tonight or tomorrow in regards to an appointment with an urologist for Tolbert catheter care and removal. Patient stated he sees a urologist at [facility] named Dr Flex Castro. IV discontinued prior to discharge. NO concerns noted by patient or daughter prior to discharge from the facility.
--- NOTE | 2019-10-07 16:06 | PATHOLOGY ---
[facility] Accession Number: [id number] . 01 Material submitted: . vertebral column - LUMBAR DECOMPRESSION . 01 Clinical history: . Lumbar stenosis with neurogenic claudication; radiculopathy . 02 Diagnosis: Segments of fibrocartilatinous tissue and bone, lumbar decompression: - Degenerative changes of fibrocartilaginous tissue. (JPM:xi; 10/07/2019) S 10/07/2019 0919 Local . 02 Comment: There is no evidence of an acute inflammatory process or malignancy. (JPM:xi; 10/07/2019) . 02 Electronically signed: . Zoran Hsu MD, Pathologist NPI- [id number] . 01 Gross description: . The specimen is received in formalin, labeled "Bo Lozada, lumbar decompression". Received is a moderate amount of pale parrish gritty tissue admixed with possible bone measuring 3.6 x 2.0 x 0.8 cm in aggregate dimensions. The specimen is submitted representatively in cassette A1, following light decalcification. ([facility]; 10/05/2019) QA/QA 10/07/2019 0917 Local . 02 Pathologist provided ICD-10: M51.36 . 02 CPT . 850757, 080260 Specimen Comment: A courtesy copy of this report has been sent to [phone] Specimen Comment: [id number] Specimen Comment: Report sent to / DR THOMPSON Performed at: 01 [facility] [address], [place] [id number] MD Germain Paul MD Phone: [phone] Performed at: 02 [facility] [id number] MD Zoran Hsu MD Phone: [phone]
== END 2019-10-06 11:45 | disposition home or self-care (01) | DRG 460 ==
LOC: OPSVCIP 06:21 → 4 SOUTHEST 15:10
PROVIDERS: ADMIT Neurological Surgery; ATTEND Neurological Surgery
PROC: 01NB0ZZ Release Lumbar Nerve, Open Approach (ICD-10-PCS; 2019-10-04)
PROC: 00NY0ZZ Release Lumbar Spinal Cord, Open Approach (ICD-10-PCS; 2019-10-04)
PROC: 0SP004Z Removal of Internal Fixation Device from Lumbar Vertebral Joint, Open Approach (ICD-10-PCS; 2019-10-04)
PROC: 4A11X4G Monitoring of Peripheral Nervous Electrical Activity, Intraoperative, External Approach (ICD-10-PCS; 2019-10-04)
PROC: 07DR0ZZ Extraction of Iliac Bone Marrow, Open Approach (ICD-10-PCS; 2019-10-04)
PROC: 0SG0071 Fusion of Lumbar Vertebral Joint with Autologous Tissue Substitute, Posterior Approach, Posterior Column, Open Approach (ICD-10-PCS; principal; 2019-10-04 08:30)
DX: M48.062 Spinal stenosis, lumbar region with neurogenic claudication (principal); M54.16 Radiculopathy, lumbar region; I10 Essential (primary) hypertension; J44.9 Chronic obstructive pulmonary disease, unspecified; Z82.49 Family history of ischemic heart disease and other diseases of the circulatory system; Z83.3 Family history of diabetes mellitus; Z87.442 Personal history of urinary calculi; Z87.891 Personal history of nicotine dependence; Z98.1 Arthrodesis status; M10.9 Gout, unspecified; M19.90 Unspecified osteoarthritis, unspecified site; Z88.8 Allergy status to other drugs, medicaments and biological substances; Z79.899 Other long term (current) drug therapy; Z90.49 Acquired absence of other specified parts of digestive tract
CPT/HCPCS: 36415; 72131; 76000; 86850; 86900; 86901; 88304; 88311; 94640; 94760; 99406; A7015; C1713; J0330; J1100; J1885; J2250; J2370; J2405; J2704; J3010; J3370; J3480; J3490; J7030; J7050; J7120; 97116-GP; 97530-GP; G0378